=== PATIENT | male | born 1950 | race Caucasian/White ===

== ENCOUNTER 2023-07-29 10:58 | Emergency (ER) | payer MEDICARE, BC ==
[~2023-07-29] VITALS: Ht 177.8 cm; Wt 120.5 kg
[2023-07-29 11:10] VITALS: BP 165/90; PULSE 86; RESP 18; O2SAT 96
[2023-07-29] MEDS ORDERED: HYDR-3965 PO (14:55)
[2023-07-29 15:06] VITALS: TEMP 98
== END 2023-07-29 15:09 | disposition home or self-care (01) ==
LOC: ER 10:59
DX: S42.254A Nondisplaced fracture of greater tuberosity of right humerus, initial encounter for closed fracture (principal); W19.XXXA Unspecified fall, initial encounter; Y93.89 Activity, other specified; Y93.A1 Activity, exercise machines primarily for cardiorespiratory conditioning; Y99.8 Other external cause status
CPT/HCPCS: 71100; 73030; 99284; A4565